=== PATIENT | female | born 1990 | race African-American/Black ===

== ENCOUNTER 2019-02-18 20:52 | Emergency (ER) | payer SELFPAY | END 2019-02-18 21:10 | disposition home or self-care (01) | LOC: ERS 20:52 | DX: K08.89 Other specified disorders of teeth and supporting structures (principal); F17.210 Nicotine dependence, cigarettes, uncomplicated | CPT/HCPCS: 99282 ==

== ENCOUNTER 2019-07-31 16:33 | Emergency (ER) | payer BC, SELFPAY ==
[2019-07-31] MEDS ORDERED: Acetaminophen 500 MG TAB ONE (17:40)
== END 2019-07-31 17:42 | disposition home or self-care (01) ==
LOC: ERS 16:33
DX: J11.1 Influenza due to unidentified influenza virus with other respiratory manifestations (principal); F17.210 Nicotine dependence, cigarettes, uncomplicated
CPT/HCPCS: 99283

== ENCOUNTER 2020-09-08 21:24 | Emergency (ER) | payer SELFPAY ==
--- NOTE | 2020-09-08 22:11 | RAD ---
Portable frontal chest radiograph: 09/08/2020 COMPARISON: None HISTORY: Cough, sore throat, difficulty breathing FINDINGS: Lungs are clear. Heart and mediastinal contours appear within normal limits. IMPRESSION: No acute findings.
[2020-09-08] MEDS ORDERED: Ondansetron ODT 4 MG TAB ONE (22:16)
[2020-09-09 06:03] LABS: SARS-CoV-2 MS2 Positive; SARS-CoV-2 N Gene Negative; SARS-CoV-2 S Gene Negative; SARS-CoV-2 by NAA Not Detected (NotDetected); SARS-CoV-2 orf1ab Negative
== END 2020-09-08 22:35 | disposition home or self-care (01) ==
LOC: ERS 21:24
DX: J02.9 Acute pharyngitis, unspecified (principal); R05 Cough; R06.02 Shortness of breath; R11.2 Nausea with vomiting, unspecified; I10 Essential (primary) hypertension; F17.210 Nicotine dependence, cigarettes, uncomplicated; Z20.822 Contact with and (suspected) exposure to COVID-19
CPT/HCPCS: 71045; 87635; 87804; Q0162; U0003

== ENCOUNTER 2020-09-13 15:46 | Emergency (ER) | payer SELFPAY | END 2020-09-13 16:30 | disposition home or self-care (01) | LOC: ERS 15:46 | DX: B34.9 Viral infection, unspecified (principal); I10 Essential (primary) hypertension; F17.290 Nicotine dependence, other tobacco product, uncomplicated; Z79.899 Other long term (current) drug therapy | CPT/HCPCS: 99283 ==

== ENCOUNTER 2020-12-25 14:58 | Emergency (ER) | payer OTHER, SELFPAY ==
[2020-12-25] MEDS ORDERED: Ketorolac Tromethamine 30 MG/ML VIAL ONE (16:48)
== END 2020-12-25 17:29 | disposition home or self-care (01) ==
LOC: ERS 14:58
DX: M25.462 Effusion, left knee (principal)
CPT/HCPCS: 96372; J1885

== ENCOUNTER 2025-04-08 15:13 | Emergency (ER) | payer SELFPAY ==
[2025-04-08 16:29] LABS: #Basophils 0.04 10x3/uL (0.0-0.2); #Eosinophils 0.09 10x3/uL (0.0-0.7); #Monocytes 0.44 10x3/uL (0.11-0.59); #Neutrophils 5.86 10x3/uL (1.40-6.50); %Basophils 0.5 % (0.0-1.0); %Eosinophils 1.1 % (0.0-10.0); %Lymphocytes 19.6 % (21.0-51.0); %Monocytes 5.5 % (0.0-10.0); %Neutrophils 72.9 % (42.0-75.0); Hematocrit 39.1 % (36.0-47.0); Hemoglobin 12.1 g/dL (12.0-16.0); Mean Corpuscular Hemoglobin 24.8 pg (27.0-31.0); Mean Corpuscular Volume 80.1 fL (78.0-98.0); Platelet Count 321 10x3/uL (130-400); Red Blood Cell (RBC) Count 4.88 mill/uL (4.20-5.40); White Blood Cell (WBC) Count 8.03 10x3/uL (4.8-10.8)
[2025-04-08 17:01] LABS: ALT (SGPT) 20 U/L (Less than 34); AST (SGOT) 20 U/L (11-34); Albumin 4.1 g/dL (3.1-4.5); Alkaline Phosphatase 69 U/L (40-110); Anion Gap 15 mmol/L (10-20); BUN (Urea Nitrogen) 10 mg/dL (7.0-18.7); Bilirubin, Total 0.4 mg/dL (0.3-1.2); Calc. Creatinine Clearance 0 mL/min (70-130); Calcium 8.8 mg/dL (7.8-10.44); Carbon Dioxide 21 mmol/L (22-29); Chloride 101 mmol/L (98-107); Globulin 3.3 g/dL (2.4-3.5); Glucose 514 mg/dL (70-105); Lipase 39 U/L (8-78); Potassium 4.4 mmol/L (3.5-5.1); Sodium 133 mmol/L (136-145)
[2025-04-08] MEDS ORDERED: Ketorolac Tromethamine 30 MG (1 mL) VIAL ONE (17:38)
== END 2025-04-08 20:56 | disposition left against medical advice (07) ==
LOC: ERS 15:13
DX: R10.9 Unspecified abdominal pain (principal); Z53.29 Procedure and treatment not carried out because of patient's decision for other reasons
CPT/HCPCS: 36415; 36416; 80053; 83690; 85025; 96374; 96375; J1815; J1885